=== PATIENT | male | born 1960 | race Caucasian/White ===

== ENCOUNTER 2020-08-21 10:53 | Observation (INO) | payer MEDICARE ==
--- NOTE | 2020-08-21 11:00 | ERPHSYRPT ---
- History of Present Illness Time Seen by Provider: 08/21/20 11:00 Historian: patient Exam Limitations: no limitations Physician History: This is a 59-year-old white male who presents with central mid chest pressure without radiation that has been present pretty much daily for several weeks. Patient finally told his spouse of these chest pains and therefore patient re cently was seen by Dr. Wright a rotary pump operator. Patient was found to have significant hypertension and was placed on Coreg and lisinopril. Patient also underwent a nuclear medicine cardiac stress test. That test result was done on 08/17/2020 and shows a normal cardiac ejection fraction of 61% and no scintigraphic evidence of any pharmacologic induced reversible ischemia. Patient has an appointment on 08/26/2020 for a cardiac echocardiogram on 08/26/2020 followed by another appointment with his rotary pump operator the week after for further evaluation and management. The patient's chest pain is persisting. It is not changing but is persistent as described above. Patient also is having increasing shortness of breath and his shortness of breath is worsening during shorter walks. Timing/Duration: other (Chronic for several weeks) Activities at Onset: activity (Worsens), rest (Persists) Quality: pressure Location: substernal, central Chest Pain Radiation: no radiation Severity of Pain-Max: moderate Severity of Pain-Current: moderate Associated Symptoms: shortness of breath, No cough, No fever Prior Chest Pain/Cardiac Workup: recently seen/treated Nitro Today/Relief: no nitro taken today Aspirin Treatment Today: 81 mg x 1, provided at home Allergies/Adverse Reactions: No Known Drug Allergies Allergy (Unverified 08/21/20 11:05) Home Medications: Aspirin 81 gm Chew [Baby Aspirin 81 mg Chew] 81 mg PO DAILY 08/21/20 [History] Carvedilol 6.25 mg [Coreg 6.25 MG] 6.25 mg PO BID 08/21/20 [History] Lisinopril 20 mg [Zestril 20 MG] 20 mg PO DAILY 08/21/20 [History] Tamsulosin HCl 0.4 mg PO DAILY 08/21/20 [History] Travel Risk - International Travel Have you traveled outside of the country in past 3 weeks: No - Coronavirus Screening Are you exhibiting any of the following symptoms?: No Close contact with a COVID-19 positive Pt in past 14-21 Days: No - Review of Systems Constitutional: No Symptoms Eyes: No Symptoms Ears, Nose, & Throat: No Symptoms Respiratory: Dyspnea Cardiac: Chest Pain (Described as pressure) Abdominal/Gastrointestinal: No Symptoms Genitourinary Symptoms: No Symptoms Musculoskeletal: No Symptoms Skin: No Symptoms Neurological: No Symptoms Psychological: No Symptoms Endocrine: No Symptoms Hematologic/Lymphatic: No Symptoms Immunological/Allergic: No Symptoms All Other Systems: Reviewed and Negative - Past Medical History Pertinent Past Medical History: Yes - Past Surgical History Past Surgical History: Yes - Nursing Vital Signs Nursing Vital Signs: Initial Vital Signs Temperature 98.5 F 08/21/20 10:54 Pulse Rate 75 08/21/20 10:54 Respiratory Rate 20 08/21/20 10:54 Blood Pressure 185/103 08/21/20 10:54 O2 Sat by Pulse Oximetry 100 08/21/20 10:54 Pain Scale Pain Intensity 2 - Physical Exam General Appearance: no apparent distress Eye Exam: PERRL/EOMI Ears, Nose, Throat Exam: normal ENT inspection, moist mucous membranes Neck Exam: normal inspection, non-tender, supple, full range of motion Respiratory Exam: normal breath sounds, lungs clear, airway intact, No chest tenderness, No respiratory distress Cardiovascular Exam: regular rate/rhythm, normal heart sounds, normal peripheral pulses Gastrointestinal/Abdomen Exam: soft, normal bowel sounds, No tenderness Rectal Exam: not done Back Exam: normal inspection, normal range of motion, No CVA tenderness, No vertebral tenderness Extremity Exam: normal inspection, normal range of motion, pelvis stable Neurologic Exam: alert, oriented x 3, cooperative, wet machine cutter II-XII nml as tested, normal mood/affect, nml cerebellar function, nml station & gait, sensation nml Skin Exam: normal color, warm, dry Lymphatic Exam: No adenopathy SpO2 Interpretation: normal O2 Delivery: Room Air - Course Nursing assessment & vital signs reviewed: Yes EKG Interpreted by Me: RATE (76), Sinus Rhythm, NORMAL AXIS, NORMAL INTERVALS, NORMAL QRS, NORMAL ST-T, Other (No acute ischemic changes. No comparison EKG) Ordered Tests: Active Orders 24 hr Category Date Time Status EKG-ER Only STAT Care 08/21/20 11:02 Active IV Insertion STAT Care 08/21/20 11:02 Active Oxygen-ED Only Nasal Cannula 2 lpm Care 08/21/20 11:41 Active CHEST 1 VIEW (PORTABLE) Stat Exams 08/21/20 11:14 Completed CBC W DIFF Stat Lab 08/21/20 11:00 Completed CMP Stat Lab 08/21/20 11:00 Completed D-DIMER QUANTITATIVE Stat Lab 08/21/20 11:20 Completed NT PRO BNP Stat Lab 08/21/20 11:00 Completed TROPONIN Q3H Lab 08/21/20 11:00 Completed TROPONIN Q3H Lab 08/21/20 14:15 Ordered TROPONIN Q3H Lab 08/21/20 17:15 Ordered TROPONIN Q3H Lab 08/21/20 20:15 Ordered TROPONIN Q3H Lab 08/21/20 23:15 Ordered Transfer Order Routine Transfer 08/21/20 Ordered Medication Summary Discontinued Medications Generic Name Dose Route Start Last Admin Trade Name Freq PRN Reason Stop Dose Admin Aspirin 324 mg 08/21/20 11:02 08/21/20 11:11 Baby Aspirin 81 Mg Chew PO 08/21/20 11:03 324 mg STAT ONE Administration Morphine Sulfate 4 mg 08/21/20 11:20 08/21/20 11:33 Morphine Sulfate 4 Mg Inj IV 08/21/20 11:21 4 mg STAT ONE Administration Morphine Sulfate Confirm 08/21/20 11:29 Morphine Sulfate 4 Mg Inj Administered 08/21/20 11:30 Dose 4 mg .ROUTE .STK-MED ONE Morphine Sulfate 2 mg 08/21/20 12:21 08/21/20 12:22 Morphine Sulfate 2 Mg Inj IV 08/21/20 12:22 2 mg STAT ONE Administration Morphine Sulfate Confirm 08/21/20 12:21 Morphine Sulfate 2 Mg Inj Administered 08/21/20 12:22 Dose 2 mg .ROUTE .STK-MED ONE Nitroglycerin 0.4 mg 08/21/20 11:20 08/21/20 11:32 Nitrostat 0.4 Mg (Ed) SL 08/21/20 11:21 0.4 mg STAT ONE Administration Nitroglycerin Confirm 08/21/20 11:29 Nitrostat 0.4 Mg (Ed) Administered 08/21/20 11:30 Dose 0.4 mg SL .STK-MED ONE Ondansetron HCl 4 mg 08/21/20 11:20 08/21/20 11:32 Zofran 4 Mg/2 Ml Vial IV 08/21/20 11:21 4 mg STAT ONE Administration Ondansetron HCl Confirm 08/21/20 11:27 Zofran 4 Mg/2 Ml Vial Administered 08/21/20 11:28 Dose 4 mg .ROUTE .STK-MED ONE Lab/Rad Data: Laboratory Result Diagrams 08/21/20 11:00 08/21/20 11:00 Laboratory Results 08/21/20 08/21/20 08/21/20 Range/Units 11:20 11:00 11:00 WBC (4.0-10.5) K/mm3 RBC (4.1-5.6) M/mm3 Hgb (12.5-18.0) gm/dl Hct (42-50) % MCV (78-100) fl MCH (26-32) pg MCHC (32-36) g/dl RDW (11.5-14.0) % Plt Count (150-450) K/mm3 MPV (7.5-11.0) fl Gran % (36.0-66.0) % Eos # (Auto) (0-0.5) Absolute Lymphs (auto) (1.0-4.6) Absolute Monos (auto) (0.0-1.3) Lymphocytes % (24.0-44.0) % Monocytes % (0.0-12.0) % Eosinophils % (0.00-5.0) % Basophils % (0.0-0.4) % Absolute Granulocytes (1.4-6.9) Basophils # (0-0.4) D-Dimer 373 (215-500) ng/mL Sodium 139 (137-145) mmol/L Potassium 4.0 (3.5-5.1) mmol/L Chloride 103 (98-107) mmol/L Carbon Dioxide 25 (22-30) mmol/L Anion Gap 14.2 (5-15) MEQ/L BUN 11 (9-20) mg/dL Creatinine 1.05 (0.66-1.25) mg/dL Estimated GFR > 60.0 ML/MIN Glucose 110 H (74-106) mg/dL Calcium 9.6 (8.4-10.2) mg/dL Total Bilirubin 0.60 (0.2-1.3) mg/dL AST 37 (17-59) U/L ALT 29 (0-50) U/L Alkaline Phosphatase 55 (38-126) U/L Troponin I < 0.012 (0.000-0.034) ng/mL NT-Pro-B Natriuret Pep 42.0 (0-900) pg/mL Serum Total Protein 7.5 (6.3-8.2) g/dL Albumin 4.5 (3.5-5.0) g/dL 08/21/20 Range/Units 11:00 WBC 7.3 (4.0-10.5) K/mm3 RBC 5.59 (4.1-5.6) M/mm3 Hgb 15.9 (12.5-18.0) gm/dl Hct 47.5 (42-50) % MCV 85.0 (78-100) fl MCH 28.4 (26-32) pg MCHC 33.5 (32-36) g/dl RDW 13.7 (11.5-14.0) % Plt Count 207 (150-450) K/mm3 MPV 11.3 H (7.5-11.0) fl Gran % 51.5 (36.0-66.0) % Eos # (Auto) 0.16 (0-0.5) Absolute Lymphs (auto) 2.66 (1.0-4.6) Absolute Monos (auto) 0.66 (0.0-1.3) Lymphocytes % 36.6 (24.0-44.0) % Monocytes % 9.1 (0.0-12.0) % Eosinophils % 2.2 (0.00-5.0) % Basophils % 0.6 (0.0-0.4) % Absolute Granulocytes 3.74 (1.4-6.9) Basophils # 0.04 (0-0.4) D-Dimer (215-500) ng/mL Sodium (137-145) mmol/L Potassium (3.5-5.1) mmol/L Chloride (98-107) mmol/L Carbon Dioxide (22-30) mmol/L Anion Gap (5-15) MEQ/L BUN (9-20) mg/dL Creatinine (0.66-1.25) mg/dL Estimated GFR ML/MIN Glucose (74-106) mg/dL Calcium (8.4-10.2) mg/dL Total Bilirubin (0.2-1.3) mg/dL AST (17-59) U/L ALT (0-50) U/L Alkaline Phosphatase (38-126) U/L Troponin I (0.000-0.034) ng/mL NT-Pro-B Natriuret Pep (0-900) pg/mL Serum Total Protein (6.3-8.2) g/dL Albumin (3.5-5.0) g/dL - Progress Progress: improved, re-examined Air Movement: good Progress Note: 08/21/20 11:32 Chest x-ray shows no acute cardiopulmonary process. 08/21/20 13:46 Medical decision making: This patient has continued chest pain despite normal D- dimer, chest x-ray and normal troponin. His electrolytes are also within normal limits. I spoke with the patient's rotary pump operator. He felt the patient would be best served by placing the patient into observation and rule him out from the cardiac standpoint. Patient then can be discharged to home and will be instructed to contact his rotary pump operator office on 08/24/2020. I then spoke with Dr. Good and he agrees to place the patient observation. Blood Culture(s) Obtained: No Antibiotics given: No Counseled pt/family regarding: lab results, diagnosis, need for follow-up, rad results - Departure Departure Disposition: Observation Clinical Impression: Chest pain, Hypertension Condition: Stable Critical Care Time: No Referrals: ASHLEY RANKIN NP [Primary Care Provider] -
[2020-08-21] MEDS ORDERED: BABY ASPIRIN 81 MG CHEW PO ONE (11:02)
[2020-08-21] MEDS ORDERED: Nitrostat 0.4 MG (ED) SL ONE ×2 (11:20→11:29)
[2020-08-21] MEDS ORDERED: MORPHINE SULFATE 4 MG INJ IV ONE ×2 (11:20→14:58)
[2020-08-21] MEDS ORDERED: Zofran 4 MG/2 ML VIAL IV ONE (11:20)
[2020-08-21] MEDS ORDERED: Zofran 4 MG/2 ML VIAL ONE (11:27)
[2020-08-21] MEDS ORDERED: MORPHINE SULFATE 4 MG INJ ONE ×2 (11:29→14:59)
--- NOTE | 2020-08-21 11:29 | XRAY ---
Indication: Chest pain. Comparison: None Portable apical lordotic chest demonstrates mild lingula subsegmental atelectasis/scarring. Remaining heart and right lung normal. Bony thorax intact with mild degenerative changes and scoliosis. Impression: Nonacute chest with chronic features.
[2020-08-21 11:31] LABS: Absolute Neutrophil Ct (ANC) 3.74 (1.4-6.9); BASOPHIL % 0.6 % (0.0-0.4); Basophil (Absolute #) 0.04 (0-0.4); Eosinophil % 2.2 % (0.00-5.0); Eosinophil (Absolute #) 0.16 (0-0.5); Hematocrit 47.5 % (42-50); Hemoglobin 15.9 gm/dl (12.5-18.0); Lymphocyte (Absolute #) 2.66 (1.0-4.6); Lymphocytes % 36.6 % (24.0-44.0); Mean Corpuscular Hemoglobin 28.4 pg (26-32); Mean Corpuscular Hgb Concent. 33.5 g/dl (32-36); Mean Platelet Volume 11.3 fl (7.5-11.0); Monocyte (Absolute #) 0.66 (0.0-1.3); Monocytes % 9.1 % (0.0-12.0); Neutrophil % 51.5 % (36.0-66.0); Platelet Count 207 K/mm3 (150-450); Red Blood Count 5.59 M/mm3 (4.1-5.6); Red Cell Distribution Width 13.7 % (11.5-14.0); White Blood Count 7.3 K/mm3 (4.0-10.5)
[2020-08-21 12:05] LABS: ALBUMIN 4.5 g/dL (3.5-5.0); ALKALINE PHOSPHATASE 55 U/L (38-126); ANION GAP 14.2 MEQ/L (5-15); BLOOD UREA NITROGEN 11 mg/dL (9-20); CHLORIDE 103 mmol/L (98-107); Calcium 9.6 mg/dL (8.4-10.2); Carbon Dioxide 25 mmol/L (22-30); Creatinine 1 1.05 mg/dL (0.66-1.25); EST GLOMERULAR FILTRATION RATE > 60.0 ML/MIN; Glucose 110 mg/dL (74-106); SGOT/AST 37 U/L (17-59); SGPT/ALT 29 U/L (0-50); SODIUM 139 mmol/L (137-145); Total Protein 7.5 g/dL (6.3-8.2)
[2020-08-21] MEDS ORDERED: MORPHINE SULFATE 2 MG INJ IV ONE (12:21)
[2020-08-21] MEDS ORDERED: MORPHINE SULFATE 2 MG INJ ONE (12:21)
[2020-08-21] MEDS ORDERED: Zofran 4 MG/2 ML VIAL IV PRN (16:43)
[2020-08-21] MEDS ORDERED: TYLENOL 325 MG PO PRN (16:43)
[2020-08-21] MEDS ORDERED: VASOTEC I.V. 2.5 MG IV SCH (16:43)
[2020-08-21] MEDS ORDERED: VASOTEC I.V. 2.5 MG IV PRN (20:17)
[2020-08-21] MEDS: MORPHINE SULFATE 4 MG INJ IV PRN (20:58)
[2020-08-21] MEDS: Coreg 6.25 MG PO SCH (20:58)
[2020-08-22 07:06] LABS: Absolute Neutrophil Ct (ANC) 4.13 (1.4-6.9); BASOPHIL % 0.3 % (0.0-0.4); Basophil (Absolute #) 0.02 (0-0.4); Eosinophil % 2.2 % (0.00-5.0); Eosinophil (Absolute #) 0.16 (0-0.5); Hematocrit 46.1 % (42-50); Hemoglobin 14.9 gm/dl (12.5-18.0); Lymphocyte (Absolute #) 2.36 (1.0-4.6); Lymphocytes % 31.9 % (24.0-44.0); Mean Cell Volume 87.8 fl (78-100); Mean Corpuscular Hemoglobin 28.4 pg (26-32); Mean Corpuscular Hgb Concent. 32.3 g/dl (32-36); Monocyte (Absolute #) 0.72 (0.0-1.3); Monocytes % 9.7 % (0.0-12.0); Neutrophil % 55.9 % (36.0-66.0); Platelet Count 194 K/mm3 (150-450); Red Blood Count 5.25 M/mm3 (4.1-5.6); White Blood Count 7.4 K/mm3 (4.0-10.5)
[2020-08-22 07:11] LABS: ALBUMIN 3.9 g/dL (3.5-5.0); ALKALINE PHOSPHATASE 51 U/L (38-126); ANION GAP 11.6 MEQ/L (5-15); BLOOD UREA NITROGEN 14 mg/dL (9-20); CHLORIDE 105 mmol/L (98-107); Calcium 9.1 mg/dL (8.4-10.2); Carbon Dioxide 27 mmol/L (22-30); Creatinine 1 1.22 mg/dL (0.66-1.25); EST GLOMERULAR FILTRATION RATE > 60.0 ML/MIN; Glucose 108 mg/dL (74-106); Potassium 4.1 mmol/L (3.5-5.1); SGOT/AST 29 U/L (17-59); SGPT/ALT 27 U/L (0-50); SODIUM 139 mmol/L (137-145); Total Protein 6.7 g/dL (6.3-8.2)
[2020-08-22] MEDS ORDERED: Nitrostat 0.4 MG Tablet SL ONE (07:18)
[2020-08-22] MEDS ORDERED: Nitrostat 0.4 MG Tablet SL PRN (07:37)
[2020-08-22] MEDS: Coreg 6.25 MG PO SCH (09:59)
[2020-08-22] MEDS: MORPHINE SULFATE 4 MG INJ IV PRN (10:36)
[2020-08-22 12:12] VITALS: BP 133/75; PULSE 69; O2SAT 93
--- NOTE | 2020-08-22 12:58 | PCM.SSS ---
History of Present Illness - Chief Complaint Chief Complaint: Chest pain History of Present Illness: Mr.DUNNING GARCIA is a 59 year old male pt of Chele Rankin with COPD, HTN, scoliosis, and BPH who was admitted through ER for CP r/o VT. He has been having chest pressure x 3 weeks; substernal, nonradiating, 4-5 to 7-8/10, worse with activity and better with rest. Does c/o diaphoresis and sob wtih it. Has had palpitations 2-3 x/wk for epast few weeks; no nausea. He went to Dr. Wright recently and was found to have very elevated BP and was started on coreg and lisinopril. Had nucelar stress test 08/17/20 with nl EF 61% and no ischemia (per ER note). Is scheduled for echo on 08/26/20. In ER, Dr. Wright was contacted and he said to admit the pt to rule out VT, then discharge him to home and he can f/u on Monday08/24/20. This morning pt had some radiation of the chest pain to the left chest. He was in bed talking to the nurse; pain was 8/10. Better with nitro and morphine. Pt's M had VT and his F had HTN and VT. Pt is a former 2 PPD smoker x 23 years. Pt tested + for COVID but only has periodic cough. He had COVID in Feb 2020. - Review of Systems Respiratory: Cough (periodically), Short Of Breath Cardiac: Chest Pain Neurological: Dizziness (lost his balance 2d ago while feeding the dog; no syncope) All Other Systems: Reviewed and Negative Medications & Allergies Home Medications: Home Medication List Aspirin 81 gm Chew [Baby Aspirin 81 mg Chew] 81 mg PO DAILY 08/21/20 [History Confirmed 08/21/20] Carvedilol 6.25 mg [Coreg 6.25 MG] 6.25 mg PO BID 08/21/20 [History Confirmed 08/21/20] Lisinopril 20 mg [Zestril 20 MG] 20 mg PO DAILY 08/21/20 [History Confirmed 08/21/20] Tamsulosin HCl 0.4 mg PO DAILY 08/21/20 [History Confirmed 08/21/20] Nitroglycerin 0.4 mg Tablet [Nitrostat 0.4 MG Tablet] 0.4 mg SL Q5MIN PRN MR X 3 PRN #1 bottle 08/22/20 [Rx] Allergies/Adverse Reactions: Allergies Allergy/AdvReac Type Severity Reaction Status Date / Time No Known Drug Allergies Allergy Unverified 08/21/20 11:05 - Past Medical History Past Medical History: Yes Neurological History: No Pertinent History ENT History: No Pertinent History Cardiac History: High Cholesterol, Hypertension Respiratory History: COPD Endocrine Medical History: No Pertinent History Musculoskelatal History: Arthritis GI Medical History: No Pertinent History History: No Pertinent History Pyscho-Social History: Depression Male Reproductive Disorders: Other Comment: enlarged prostate - Past Surgical History Past Surgical History: Yes Neuro Surgical History: No Pertinent History Cardiac History: No Pertinent History Respiratory Surgery: No Pertinent History GI Surgical History: No Pertinent History Genitourinary Surgical Hx: No Pertinent History Musculskeletal Surgical Hx: Orthopedic Surgery Male Surgical History: No Pertinent History Other Surgical History: R knee, R foot, L ankle - screws in place - Social History Smoking Status: Former smoker Exposure to second hand smoke: No Alcohol: None Drug Use: none - Physical Exam Vital Signs: Vital Signs - 24 hr Temp Pulse Resp BP BP Pulse Ox 08/22/20 12:00 98.5 F 69 18 133/75 93 L 08/22/20 10:46 98.3 F 85 18 151/81 94 L 08/22/20 10:00 99.0 F 75 16 138/65 95 08/22/20 07:55 18 08/22/20 07:51 97.8 F 75 18 132/89 94 L 08/22/20 07:43 94 L 08/22/20 07:20 75 132/89 08/22/20 05:56 60 18 119/70 95 08/22/20 03:47 62 18 92 L 08/22/20 01:59 74 16 124/73 92 L 08/21/20 23:35 68 18 120/70 93 L 08/21/20 21:40 98.5 F 71 18 133/86 93 L 08/21/20 19:34 98.7 F 77 20 144/80 92 L 08/21/20 17:57 98.5 F 84 20 136/68 92 L 08/21/20 17:28 98.5 F 64 18 160/90 94 L 08/21/20 17:21 94 L 08/21/20 15:01 63 18 146/82 97 08/21/20 14:58 61 18 125/77 98 08/21/20 13:04 60 16 121/66 97 General Appearance: no apparent distress, obese Neurologic Exam: alert, oriented x 3, cooperative, normal mood/affect Eye Exam: eyes nml inspection Ears, Nose, Throat Exam: moist mucous membranes Neck Exam: normal inspection Respiratory Exam: normal breath sounds, lungs clear, other (chest nttp throughout), No crackles/rales, No rhonchi, No wheezing Cardiovascular Exam: regular rate/rhythm, normal heart sounds, No murmur Gastrointestinal/Abdomen Exam: soft, normal bowel sounds, No tenderness, No distention, No mass, No guarding, No rebound Back Exam: normal inspection, No rash Extremity Exam: normal inspection, No pedal edema, No swelling Skin Exam: normal color, warm, dry, No rash Results - Labs Lab/Micro Results: Lab Results-Last 24 Hours 08/21/20 08/21/20 08/21/20 Range/Units 14:05 14:22 17:23 WBC (4.0-10.5) K/mm3 RBC (4.1-5.6) M/mm3 Hgb (12.5-18.0) gm/dl Hct (42-50) % MCV (78-100) fl MCH (26-32) pg MCHC (32-36) g/dl RDW (11.5-14.0) % Plt Count (150-450) K/mm3 MPV (7.5-11.0) fl Gran % (36.0-66.0) % Eos # (Auto) (0-0.5) Absolute Lymphs (auto) (1.0-4.6) Absolute Monos (auto) (0.0-1.3) Lymphocytes % (24.0-44.0) % Monocytes % (0.0-12.0) % Eosinophils % (0.00-5.0) % Basophils % (0.0-0.4) % Absolute Granulocytes (1.4-6.9) Basophils # (0-0.4) Sodium (137-145) mmol/L Potassium (3.5-5.1) mmol/L Chloride (98-107) mmol/L Carbon Dioxide (22-30) mmol/L Anion Gap (5-15) MEQ/L BUN (9-20) mg/dL Creatinine (0.66-1.25) mg/dL Estimated GFR ML/MIN Glucose (74-106) mg/dL Calcium (8.4-10.2) mg/dL Total Bilirubin (0.2-1.3) mg/dL AST (17-59) U/L ALT (0-50) U/L Alkaline Phosphatase (38-126) U/L Troponin I < 0.012 < 0.012 (0.000-0.034) ng/mL Serum Total Protein (6.3-8.2) g/dL Albumin (3.5-5.0) g/dL SARS-CoV-2 (PCR) POSITIVE A (NEGATIVE) 08/21/20 08/21/20 08/22/20 Range/Units 19:59 23:35 06:15 WBC 7.4 (4.0-10.5) K/mm3 RBC 5.25 (4.1-5.6) M/mm3 Hgb 14.9 (12.5-18.0) gm/dl Hct 46.1 (42-50) % MCV 87.8 (78-100) fl MCH 28.4 (26-32) pg MCHC 32.3 (32-36) g/dl RDW 14.0 (11.5-14.0) % Plt Count 194 (150-450) K/mm3 MPV 11.0 (7.5-11.0) fl Gran % 55.9 (36.0-66.0) % Eos # (Auto) 0.16 (0-0.5) Absolute Lymphs (auto) 2.36 (1.0-4.6) Absolute Monos (auto) 0.72 (0.0-1.3) Lymphocytes % 31.9 (24.0-44.0) % Monocytes % 9.7 (0.0-12.0) % Eosinophils % 2.2 (0.00-5.0) % Basophils % 0.3 (0.0-0.4) % Absolute Granulocytes 4.13 (1.4-6.9) Basophils # 0.02 (0-0.4) Sodium (137-145) mmol/L Potassium (3.5-5.1) mmol/L Chloride (98-107) mmol/L Carbon Dioxide (22-30) mmol/L Anion Gap (5-15) MEQ/L BUN (9-20) mg/dL Creatinine (0.66-1.25) mg/dL Estimated GFR ML/MIN Glucose (74-106) mg/dL Calcium (8.4-10.2) mg/dL Total Bilirubin (0.2-1.3) mg/dL AST (17-59) U/L ALT (0-50) U/L Alkaline Phosphatase (38-126) U/L Troponin I < 0.012 < 0.012 (0.000-0.034) ng/mL Serum Total Protein (6.3-8.2) g/dL Albumin (3.5-5.0) g/dL SARS-CoV-2 (PCR) (NEGATIVE) 08/22/20 Range/Units 06:15 WBC (4.0-10.5) K/mm3 RBC (4.1-5.6) M/mm3 Hgb (12.5-18.0) gm/dl Hct (42-50) % MCV (78-100) fl MCH (26-32) pg MCHC (32-36) g/dl RDW (11.5-14.0) % Plt Count (150-450) K/mm3 MPV (7.5-11.0) fl Gran % (36.0-66.0) % Eos # (Auto) (0-0.5) Absolute Lymphs (auto) (1.0-4.6) Absolute Monos (auto) (0.0-1.3) Lymphocytes % (24.0-44.0) % Monocytes % (0.0-12.0) % Eosinophils % (0.00-5.0) % Basophils % (0.0-0.4) % Absolute Granulocytes (1.4-6.9) Basophils # (0-0.4) Sodium 139 (137-145) mmol/L Potassium 4.1 (3.5-5.1) mmol/L Chloride 105 (98-107) mmol/L Carbon Dioxide 27 (22-30) mmol/L Anion Gap 11.6 (5-15) MEQ/L BUN 14 (9-20) mg/dL Creatinine 1.22 (0.66-1.25) mg/dL Estimated GFR > 60.0 ML/MIN Glucose 108 H (74-106) mg/dL Calcium 9.1 (8.4-10.2) mg/dL Total Bilirubin 0.40 (0.2-1.3) mg/dL AST 29 (17-59) U/L ALT 27 (0-50) U/L Alkaline Phosphatase 51 (38-126) U/L Troponin I (0.000-0.034) ng/mL Serum Total Protein 6.7 (6.3-8.2) g/dL Albumin 3.9 (3.5-5.0) g/dL SARS-CoV-2 (PCR) (NEGATIVE) - Radiology Impressions Radiology Exams & Impressions: Radiology Procedures Category Date Time Status CHEST 1 VIEW (PORTABLE) Stat Exams 08/21/20 11:14 Completed - Other Procedures and Tests Respiratory Therapy 08/21/20 21:00 BiPap/CPAP ROUTINE Assessment/Plan (1) Chest pain Current Visit: Yes Status: Acute Qualifiers: Chest pain type: chest pain due to myocardial ischemia Ischemic chest pain type: stable angina pectoris Qualified Code(s): I20.8 - Other forms of angina pectoris Assessment & Plan: VT ruled out. Pt to f/u with Dr. Wright on Monday08/24/20. Pt in the midst of cardiac workup. Code(s): R07.9 - CHEST PAIN, UNSPECIFIED (2) Hypertension Current Visit: Yes Status: Chronic Qualifiers: Hypertension type: essential hypertension Qualified Code(s): I10 - Essential (primary) hypertension Code(s): I10 - ESSENTIAL (PRIMARY) HYPERTENSION Hospital Summary - Hospital Course Hospital Course: Pt admitted for CP/R/o VT - troponins are neg x 5. EKG nonacute. Will send pt home with nitro prn; discussed when to come to ER. He is to f/u with Dr. Wright on Monday08/24/[address] Wright. - Vitals & Intake/Output Vital Signs: Vital Signs Temperature 98.5 F 08/22/20 12:00 Pulse Rate 69 08/22/20 12:00 Respiratory Rate 18 08/22/20 12:00 Blood Pressure 133/75 08/22/20 12:00 O2 Sat by Pulse Oximetry 93 L 08/22/20 12:00 Intake & Output: Intake & Output 08/20/20 08/21/20 08/22/20 08/23/20 11:59 11:59 11:59 11:59 Intake Total 1040 Output Total 350 Balance 690 Weight 100.8 kg 107.5 kg - Lab Result Diagrams: 08/22/20 06:15 08/22/20 06:15 Lab Results-Last 24 Hrs: Lab Results-Last 24 Hours 08/21/20 08/21/20 08/21/20 Range/Units 14:05 14:22 17:23 WBC (4.0-10.5) K/mm3 RBC (4.1-5.6) M/mm3 Hgb (12.5-18.0) gm/dl Hct (42-50) % MCV (78-100) fl MCH (26-32) pg MCHC (32-36) g/dl RDW (11.5-14.0) % Plt Count (150-450) K/mm3 MPV (7.5-11.0) fl Gran % (36.0-66.0) % Eos # (Auto) (0-0.5) Absolute Lymphs (auto) (1.0-4.6) Absolute Monos (auto) (0.0-1.3) Lymphocytes % (24.0-44.0) % Monocytes % (0.0-12.0) % Eosinophils % (0.00-5.0) % Basophils % (0.0-0.4) % Absolute Granulocytes (1.4-6.9) Basophils # (0-0.4) Sodium (137-145) mmol/L Potassium (3.5-5.1) mmol/L Chloride (98-107) mmol/L Carbon Dioxide (22-30) mmol/L Anion Gap (5-15) MEQ/L BUN (9-20) mg/dL Creatinine (0.66-1.25) mg/dL Estimated GFR ML/MIN Glucose (74-106) mg/dL Calcium (8.4-10.2) mg/dL Total Bilirubin (0.2-1.3) mg/dL AST (17-59) U/L ALT (0-50) U/L Alkaline Phosphatase (38-126) U/L Troponin I < 0.012 < 0.012 (0.000-0.034) ng/mL Serum Total Protein (6.3-8.2) g/dL Albumin (3.5-5.0) g/dL SARS-CoV-2 (PCR) POSITIVE A (NEGATIVE) 08/21/20 08/21/20 08/22/20 Range/Units 19:59 23:35 06:15 WBC 7.4 (4.0-10.5) K/mm3 RBC 5.25 (4.1-5.6) M/mm3 Hgb 14.9 (12.5-18.0) gm/dl Hct 46.1 (42-50) % MCV 87.8 (78-100) fl MCH 28.4 (26-32) pg MCHC 32.3 (32-36) g/dl RDW 14.0 (11.5-14.0) % Plt Count 194 (150-450) K/mm3 MPV 11.0 (7.5-11.0) fl Gran % 55.9 (36.0-66.0) % Eos # (Auto) 0.16 (0-0.5) Absolute Lymphs (auto) 2.36 (1.0-4.6) Absolute Monos (auto) 0.72 (0.0-1.3) Lymphocytes % 31.9 (24.0-44.0) % Monocytes % 9.7 (0.0-12.0) % Eosinophils % 2.2 (0.00-5.0) % Basophils % 0.3 (0.0-0.4) % Absolute Granulocytes 4.13 (1.4-6.9) Basophils # 0.02 (0-0.4) Sodium (137-145) mmol/L Potassium (3.5-5.1) mmol/L Chloride (98-107) mmol/L Carbon Dioxide (22-30) mmol/L Anion Gap (5-15) MEQ/L BUN (9-20) mg/dL Creatinine (0.66-1.25) mg/dL Estimated GFR ML/MIN Glucose (74-106) mg/dL Calcium (8.4-10.2) mg/dL Total Bilirubin (0.2-1.3) mg/dL AST (17-59) U/L ALT (0-50) U/L Alkaline Phosphatase (38-126) U/L Troponin I < 0.012 < 0.012 (0.000-0.034) ng/mL Serum Total Protein (6.3-8.2) g/dL Albumin (3.5-5.0) g/dL SARS-CoV-2 (PCR) (NEGATIVE) 08/22/20 Range/Units 06:15 WBC (4.0-10.5) K/mm3 RBC (4.1-5.6) M/mm3 Hgb (12.5-18.0) gm/dl Hct (42-50) % MCV (78-100) fl MCH (26-32) pg MCHC (32-36) g/dl RDW (11.5-14.0) % Plt Count (150-450) K/mm3 MPV (7.5-11.0) fl Gran % (36.0-66.0) % Eos # (Auto) (0-0.5) Absolute Lymphs (auto) (1.0-4.6) Absolute Monos (auto) (0.0-1.3) Lymphocytes % (24.0-44.0) % Monocytes % (0.0-12.0) % Eosinophils % (0.00-5.0) % Basophils % (0.0-0.4) % Absolute Granulocytes (1.4-6.9) Basophils # (0-0.4) Sodium 139 (137-145) mmol/L Potassium 4.1 (3.5-5.1) mmol/L Chloride 105 (98-107) mmol/L Carbon Dioxide 27 (22-30) mmol/L Anion Gap 11.6 (5-15) MEQ/L BUN 14 (9-20) mg/dL Creatinine 1.22 (0.66-1.25) mg/dL Estimated GFR > 60.0 ML/MIN Glucose 108 H (74-106) mg/dL Calcium 9.1 (8.4-10.2) mg/dL Total Bilirubin 0.40 (0.2-1.3) mg/dL AST 29 (17-59) U/L ALT 27 (0-50) U/L Alkaline Phosphatase 51 (38-126) U/L Troponin I (0.000-0.034) ng/mL Serum Total Protein 6.7 (6.3-8.2) g/dL Albumin 3.9 (3.5-5.0) g/dL SARS-CoV-2 (PCR) (NEGATIVE) - Radiology Exams Ordered Rad Exams-Entire Visit: Radiology Procedures Category Date Time Status CHEST 1 VIEW (PORTABLE) Stat Exams 08/21/20 11:14 Completed - Procedures and Test Procedures and Tests throughout Hospitalization: Therapy Orders & Screens 08/21/20 16:43 EKG REPEAT IN AM Comment: 08/21/20 21:00 BiPap/CPAP ROUTINE Comment: PER HOME SETTINGS Diagnosis: Chest pain - Discharge Disposition: Home, Self-Care Condition: Stable Prescriptions: New Nitroglycerin 0.4 mg Tablet [Nitrostat 0.4 MG Tablet] 0.4 mg SL Q5MIN PRN MR X 3 PRN #1 bottle PRN Reason: Chest Pain Continue Carvedilol 6.25 mg [Coreg 6.25 MG] 6.25 mg PO BID Aspirin 81 gm Chew [Baby Aspirin 81 mg Chew] 81 mg PO DAILY Lisinopril 20 mg [Zestril 20 MG] 20 mg PO DAILY Tamsulosin HCl 0.4 mg PO DAILY Instructions: High Blood Pressure (DC), Chest Pain (DC), Coronavirus Disease 2019 (COVID-19) (DC) Follow up with: ASHLEY RANKIN NP [Primary Care Provider] - Forms: Discharge Instructions
== END 2020-08-22 14:21 | disposition home or self-care (01) ==
LOC: ED 10:53 → MED SURG 16:30
PROVIDERS: ADMIT Family Medicine; ATTEND Family Medicine
DX: R07.9 Chest pain, unspecified (principal); I10 Essential (primary) hypertension; Z79.899 Other long term (current) drug therapy; J44.9 Chronic obstructive pulmonary disease, unspecified; N40.0 Benign prostatic hyperplasia without lower urinary tract symptoms; R42 Dizziness and giddiness; E78.00 Pure hypercholesterolemia, unspecified; Z20.828 Contact with and (suspected) exposure to other viral communicable diseases
CPT/HCPCS: 36000; 36415; 71045; 80053; 83880; 84484; 85025; 85379; 93005; 93268; 94660; 94762; 96374; 96375; 96376; 99285; G0378; U0003; J2270; J2405; A9270-GY

== ENCOUNTER 2023-11-15 17:30 | Emergency (ER) | payer MEDICARE, OTHER ==
[2023-11-15 19:58] VITALS: TEMP 98.1
--- NOTE | 2023-11-15 20:22 | ERPHSYRPT ---
- History of Present Illness Time Seen by Provider: 11/15/23 20:15 Source: patient Exam Limitations: no limitations Patient Subjective Stated Complaint: fall, pt fell off a 3 step ladder and hit back on a window pain Triage Nursing Assessment: pt transferred from wheelchair to cot with stand by assist, spouse at bedside, pt presents with abrasions to bilateral elbows and L lower arm. abrasions noted to lower back and upper back, tenderness upon palpation to R flank. pt denies hitting head. pt on plavix Physician History: Patient is a 63-year-old male presents to emergency department for evaluation of low back pain. Patient states he was on a 3 rung ladder. Patient was at the top when he lost his balance and fell backwards. Patient's low back fell onto a concrete wall inlay. Injury occurred just prior to arrival. Patient complains of pain to the right flank and right low back. Patient has superficial abrasions to both elbows. However he states that these areas are not painful and declined x-rays of these areas. No BHT or LOC. No neck pain. Cervical spine cleared clinically. Patient otherwise feels well. at bedside. They voiced no other complaints or concerns at this time. Portions of this note were created with voice recognition technology. There may be grammatical, spelling, punctuation or sound alike errors Timing/Duration: today Severity: moderate Modifying Factors: Improves With: ibuprofen Associated Symptoms: denies symptoms Allergies/Adverse Reactions: No Known Drug Allergies Allergy (Verified 11/15/23 19:53) Home Medications: Carvedilol [Coreg ] 6.25 mg PO BID 08/21/20 [History] Lisinopril 20 mg [Zestril 20 MG] 20 mg PO DAILY 08/21/20 [History] Tamsulosin HCl 0.4 mg PO DAILY 08/21/20 [History] Albuterol Sulfate [Albuterol Sulfate Hfa] 2 puffs IH Q6H PRN PRN 11/15/23 [History] Amlodipine Besylate 5 mg [Norvasc 5 mg] 5 mg PO DAILY 11/15/23 [History] Clopidogrel Bisulfate [Plavix] 75 mg PO DAILY 11/15/23 [History] Ezetimibe [Zetia] 10 mg PO DAILY 11/15/23 [History] Hx Tetanus, Diphtheria Vaccination/Date Given: Yes Hx Influenza Vaccination/Date Given: No Hx Pneumococcal Vaccination/Date Given: No Travel Risk - International Travel Have you traveled outside of the country in past 3 weeks: No - Emerging Infectious Disease Are you exhibiting symptoms associated with any current EIDs: No - Review of Systems Constitutional: No Symptoms, No Fever, No Chills Eyes: No Symptoms Ears, Nose, & Throat: No Symptoms Respiratory: No Symptoms, No Cough, No Dyspnea Cardiac: No Symptoms, No Chest Pain, No Edema, No Syncope Abdominal/Gastrointestinal: No Symptoms, No Abdominal Pain, No Nausea, No Vomiting, No Diarrhea Genitourinary Symptoms: No Symptoms, No Dysuria Musculoskeletal: No Symptoms, No Back Pain, No Neck Pain Skin: No Symptoms, No Rash Neurological: No Symptoms, No Dizziness, No Focal Weakness, No Sensory Changes Psychological: No Symptoms Endocrine: No Symptoms Hematologic/Lymphatic: No Symptoms Immunological/Allergic: No Symptoms All Other Systems: Reviewed and Negative - Past Medical History Pertinent Past Medical History: Yes Neurological History: No Pertinent History ENT History: No Pertinent History Cardiac History: High Cholesterol, Hypertension Respiratory History: COPD Endocrine Medical History: No Pertinent History Musculoskeletal History: Arthritis GI Medical History: No Pertinent History History: No Pertinent History Psycho-Social History: Depression Male Reproductive Disorders: Other Other Medical History: enlarged prostate - Past Surgical History Past Surgical History: Yes Neuro Surgical History: No Pertinent History Cardiac: Cardiac Catheterization, Cardiac Stent Respiratory: No Pertinent History Gastrointestinal: No Pertinent History Genitourinary: No Pertinent History Musculoskeletal: Orthopedic Surgery Male Surgical History: No Pertinent History Other Surgical History: R knee, R foot, L ankle - screws in place - Social History Smoking Status: Former smoker Exposure to second hand smoke: No Drug Use: none Patient Lives Alone: No - Social Determinants of Health Will the patient participate in the screening: Declined to provide - Nursing Vital Signs Nursing Vital Signs: Initial Vital Signs Temperature 98.1 F 11/15/23 19:54 Pulse Rate 72 11/15/23 19:54 Respiratory Rate 18 11/15/23 19:54 Blood Pressure 157/67 11/15/23 19:54 O2 Sat by Pulse Oximetry 96 11/15/23 19:54 Pain Scale Pain Intensity 6 - Physical Exam General Appearance: no apparent distress, alert Eye Exam: PERRL/EOMI, eyes nml inspection Ears, Nose, Throat Exam: normal ENT inspection, moist mucous membranes Neck Exam: normal inspection, non-tender, supple, full range of motion Respiratory Exam: normal breath sounds, lungs clear, airway intact, No respiratory distress Cardiovascular Exam: regular rate/rhythm, normal heart sounds, normal peripheral pulses Gastrointestinal/Abdomen Exam: soft, normal bowel sounds, No tenderness, No mass Back Exam: normal inspection, normal range of motion, other (Tenderness to palpation lumbar spine. Overlying soft tissue intact. No open or draining lesions), No CVA tenderness, No vertebral tenderness Extremity Exam: normal inspection, normal range of motion, pelvis stable, other (Abrasions to both elbows. Bilateral upper extremities are neurovascular intact distally compartments are soft cap refill less than 2 seconds.) Neurologic Exam: alert, oriented x 3, cooperative, normal mood/affect, sensation nml, No motor deficits Skin Exam: normal color, warm, dry, No rash Lymphatic Exam: No adenopathy SpO2 Interpretation: normal SpO2: 96 O2 Delivery: Room Air - Course Nursing assessment & vital signs reviewed: Yes - Radiology Exams L-Spine X-ray Interpretation: Teleradiologist Report (No comps. Nondisplaced right L1- L3 transverse process acute fracture. Incidental scattered diverticulosis, mild lumbar dextroscoliosis and mild multilevel degenerative disc disease of the lumbar spine. Remaining abdomen pelvis negative) - CT Exams Abdomen/Pelvis CT Interpretation: Tele-radiologist Report (No comps nondisplaced right L1-L3 transverse process acute fractures. Incidental scattered diverticulosis with mild multilevel lumbar degenerative disc disease. Otherwise negative.) Chest CT Interpretation: Tele-radiologist Report (CT chest no comps. 1.2 cm x 1.3 cm right lower lobe noncalcified lung nodule. Scattered bilateral atelectasis scarring and mild levoscoliosis no acute findings or fractures) Ordered Tests: Active Orders 24 hr Category Date Time Status ABDOMEN AND PELVIS W/0 CONTRAS [CT] Stat Exams 11/15/23 20:23 Taken CHEST WITHOUT CONTRAST [CT] Stat Exams 11/15/23 20:39 Taken RECONSTRUCTION [CT] Stat Exams 11/15/23 20:23 Taken Medication Summary Discontinued Medications Generic Name Dose Route Start Last Admin Trade Name Freq PRN Reason Stop Dose Admin Dexamethasone Sodium Phosphate 8 mg 11/15/23 20:20 11/15/23 21:14 Dexamethasone Sod Phosphate 10 Mg/Ml IM 11/15/23 20:21 8 mg STAT ONE Administration Dexamethasone Sodium Phosphate Confirm 11/15/23 20:31 Dexamethasone Sod Phosphate 10 Mg/Ml Administered 11/15/23 20:32 Dose 10 mg .ROUTE .STK-MED ONE Ketorolac Tromethamine 60 mg 11/15/23 20:20 11/15/23 21:13 Ketorolac Tromethamine 30 Mg/Ml Inj IM 11/15/23 20:21 60 mg STAT ONE Administration Ketorolac Tromethamine Confirm 11/15/23 20:31 Ketorolac Tromethamine 30 Mg/Ml Inj Administered 11/15/23 20:32 Dose 60 mg .ROUTE .STK-MED ONE - Progress Progress: improved Progress Note: I spoke to Dr. Irwin of orthopedics. He advised that these are stable fractures. Patient may be discharged home with pain control. Patient to follow-up with Dr. Karlos Wilson orthopedic spine doctor in [place]. Plan of care discussed with patient and his . They agree to follow-up as planned. Patient reassessed. Pain significantly improved. Patient states he is well enough to go home. No indication for further workup. They voiced no other complaints or concerns at this time. Portions of this note were created with voice recognition technology. There may be grammatical, spelling, punctuation or sound alike errors Complexity problem addressed is moderate acute complicated. No critical care time. Complex of data reviewed and analyzed is extensive. Test ordered chest reviewed results analyzed and correlated clinically with history and physical examination. Management discussed with orthopedics. Risk of complication and or risk of morbidity/mortality patient management is moderate. Prescription for Johnston forwarded to patient's pharmacy. Vital stable. Time spent to discharge patient approximately 20 minutes. Plan of care established for shared decision making. No social determinants of health present to impede follow-up. Portions of this note were created with voice recognition technology. There may be grammatical, spelling, punctuation or sound alike errors 11/15/23 22:44 - Departure Departure Disposition: Home Clinical Impression: Fall, Fracture of transverse process of spine without spinal cord lesion, Lumbosacral strain, Degenerative disc disease, Dextroscoliosis, Right lower lobe noncalcified lung nodul Condition: Stable Critical Care Time: No Referrals: ASHLEY RANKIN, SERA [Primary Care Provider] - Follow up/PCP as directed CARLOS WILSON [NON-STAFF PHY W/O PRIVILEGES] - Follow up/PCP as directed Additional Instructions: Please follow-up with Dr. Karlos Wilson orthopedic spine surgeon in [place]. Please call tomorrow morning to schedule a follow-up appointment Discharge/Care Plan SUMMER LUONG JR was seen on 11/15/23 in the Emergency Room. The patient was counseled regarding Diagnosis,Lab results, Imaging studies, need for follow up and when to return to the Emergency Room. Prescriptions given: Discharge Note I have spoken with the patient and/or caregivers. I have explained the patient's condition, diagnosis and treatment plan based on the information available to me at this time. I have answered the patient's and/or caregiver's questions and addressed any concerns. The patient and/or caregivers have as good understanding of the patient's diagnosis, condition and treatment plan as can be expected at this point. The vital signs have been stable. The patient's condition is stable and appropriate for discharge from the emergency department. The patient will pursue further outpatient evaluation with the primary care physician or other designated or consulting physician as outlined in the discharge instructions. The patient and/or caregivers are agreeable to this plan of care and follow-up instructions have been explained in detail. The patient and/or caregivers have received these instruction. The patient/and or caregivers are aware that any significant change in condition or worsening of symptoms should prompt an immediate return to this or the closest emergency department or call 911. Prescriptions: Hydrocodone/APAP 5/325 [Johnston 5/325 mg] 1 each PO Q6H PRN PRN #10 tablet MDD 4 PRN Reason: Pain
[2023-11-15] MEDS ORDERED: DECADRON 10MG INJ. ONE (20:31)
[2023-11-15] MEDS ORDERED: TORAdol 30 mg Injection ONE (20:31)
[2023-11-15] MEDS: TORAdol 30 mg Injection IM ONE (21:13)
[2023-11-15] MEDS: DECADRON 10MG INJ. IM ONE (21:14)
[2023-11-15] MEDS ORDERED: NORCO 5/325 MG ONE (22:56)
[2023-11-15] MEDS: NORCO 5/325 MG PO ONE (22:56)
[2023-11-15 23:04] VITALS: BP 140/79; PULSE 75; RESP 19; O2SAT 94
--- NOTE | 2023-11-16 08:45 | XRAY ---
Indication: Pain following fall from ladder. Multiple contiguous axial images obtained through the chest without contrast. Comparison: None Both lower lobes demonstrate scattered subsegmental atelectasis/scarring. There is a 1.3 x 1.2 cm indeterminant noncalcified nodule in the right lower lobe. No infiltrate, consolidation, effusion, or pneumothorax. Heart is not enlarged with scattered coronary calcifications and stent. Aorta is normal in course and caliber. No pathologic mediastinal lymphadenopathy. Small hiatal hernia. Bony thorax intact with incidental mild levoscoliosis centered at T11. CT abdomen/pelvis reported separately. Impression: 1. Right lobe indeterminant noncalcified nodule. Outside comparison studies recommended if available. If not, PET CT may yield further information. 2. Incidental bibasilar atelectasis/scarring, coronary calcifications, hiatal hernia, and levoscoliosis.
--- NOTE | 2023-11-16 08:49 | XRAY ---
Indication: Pain following fall from ladder. Multiple contiguous axial images obtained through the abdomen and pelvis without contrast. Comparison: None CT chest reported separately. Noncontrasted stomach and bowel loops appear nonobstructed with normal appendix and scattered colonic diverticulosis greatest in sigmoid colon. 1 cm right adrenal adenoma. No free fluid/air. Remaining liver, gallbladder, pancreas, spleen, adrenal glands, kidneys, ureters, and bladder are unremarkable for noncontrast exam. Mild scattered aortoiliac calcifications with minimal distal aortic ectasia. Osseous structures demonstrates minimal degenerative changes throughout the spine, mild degenerative changes both hips, and mild dextroscoliosis centered at L1. Also minimally displaced right L1-L3 transverse process acute fractures. Impression: 1. Acute fractures right L1-L3 transverse processes. 2. Chronic findings including colonic diverticulosis, right adrenal adenoma, arteriosclerotic disease, and chronic bony findings. 3. Remaining CT abdomen/pelvis without contrast exam is negative
--- NOTE | 2023-11-16 08:51 | XRAY ---
Indication: Pain following fall from ladder. Sagittal, coronal, and axial reformatted images lumbar spine obtained using raw data from same day abdomen and pelvis exam. Comparison: None Osseous structures demonstrates minimal degenerative changes throughout the spine and mild dextroscoliosis centered at L1. Also minimally displaced right L1-L3 transverse process acute fractures. CT abdomen/pelvis reported separately. Impression: Acute fractures right L1-L3 transverse processes.
== END 2023-11-15 23:29 | disposition home or self-care (01) ==
LOC: ED 17:30
DX: S32.019A Unspecified fracture of first lumbar vertebra, initial encounter for closed fracture (principal); S32.029A Unspecified fracture of second lumbar vertebra, initial encounter for closed fracture; S32.039A Unspecified fracture of third lumbar vertebra, initial encounter for closed fracture; S39.012A Strain of muscle, fascia and tendon of lower back, initial encounter; W11.XXXA Fall on and from ladder, initial encounter; M51.36 Other intervertebral disc degeneration, lumbar region; M41.9 Scoliosis, unspecified; R91.1 Solitary pulmonary nodule; E78.5 Hyperlipidemia, unspecified; I10 Essential (primary) hypertension; Z79.891 Long term (current) use of opiate analgesic; Z79.02 Long term (current) use of antithrombotics/antiplatelets; Z79.899 Other long term (current) drug therapy
CPT/HCPCS: 71250; 74176; 76376; 96372; 99284; J1100; J1885; A9270-GY

== ENCOUNTER 2023-11-20 11:27 | Emergency (ER) | payer MEDICARE, OTHER ==
--- NOTE | 2023-11-20 11:29 | ERPHSYRPT ---
- History of Present Illness Time Seen by Provider: 11/20/23 11:28 Source: patient, family Exam Limitations: no limitations Physician History: This is a 63-year-old white male patient of nurse practitioner Gibran who presents with back pain. He has a known acute fractures of right L1-L3 transverse process fractures that were found on a CT scan performed on 11/15/2023 here in our emergency department after he fell off a ladder. Patient took his last dose of pain medicine at 5 AM. Patient has a neurologist appointment in 2 weeks as well as 4 weeks depending on who he can see the earliest. Patient has not had a new fall or injury. His pain increases with movement. Is described as sharp and shooting pain. Patient has not loss of bowel or bladder control. He has no urinary retention. Timing/Duration: day(s) (Several days after he fell off a ladder.) Method of Injury: fall Quality: sharp, stabbing Back Pain Location: lumbar spine Severity of Pain-Max: moderate Associated Symptoms: lower back pain, No urinary incontinence, No loss of bowel control, No numbness in legs/feet, No tingling in legs/feet Previous symptoms: same symptoms as today, recently seen, recently treated Allergies/Adverse Reactions: No Known Drug Allergies Allergy (Verified 11/20/23 13:43) Home Medications: Carvedilol [Coreg ] 6.25 mg PO BID 08/21/20 [History] Lisinopril 20 mg [Zestril 20 MG] 20 mg PO DAILY 08/21/20 [History] Tamsulosin HCl 0.4 mg PO DAILY 08/21/20 [History] Albuterol Sulfate [Albuterol Sulfate Hfa] 2 puffs IH Q6H PRN PRN 11/15/23 [History] Amlodipine Besylate 5 mg [Norvasc 5 mg] 5 mg PO DAILY 11/15/23 [History] Clopidogrel Bisulfate [Plavix] 75 mg PO DAILY 11/15/23 [History] Ezetimibe [Zetia] 10 mg PO DAILY 11/15/23 [History] Hx Tetanus, Diphtheria Vaccination/Date Given: Yes Hx Influenza Vaccination/Date Given: No Hx Pneumococcal Vaccination/Date Given: No Travel Risk - International Travel Have you traveled outside of the country in past 3 weeks: No - Emerging Infectious Disease Are you exhibiting symptoms associated with any current EIDs: No - Review of Systems Constitutional: No Symptoms Eyes: No Symptoms Ears, Nose, & Throat: No Symptoms Respiratory: No Symptoms Cardiac: No Symptoms Abdominal/Gastrointestinal: No Symptoms Genitourinary Symptoms: No Symptoms Musculoskeletal: Back Pain Skin: No Symptoms Neurological: No Symptoms Psychological: No Symptoms Endocrine: No Symptoms Hematologic/Lymphatic: No Symptoms Immunological/Allergic: No Symptoms All Other Systems: Reviewed and Negative - Past Medical History Pertinent Past Medical History: Yes Neurological History: No Pertinent History ENT History: No Pertinent History Cardiac History: High Cholesterol, Hypertension Respiratory History: COPD Endocrine Medical History: No Pertinent History Musculoskeletal History: Arthritis GI Medical History: No Pertinent History History: No Pertinent History Psycho-Social History: Depression Male Reproductive Disorders: Other Other Medical History: enlarged prostate - Past Surgical History Past Surgical History: Yes Neuro Surgical History: No Pertinent History Cardiac: Cardiac Catheterization, Cardiac Stent Respiratory: No Pertinent History Gastrointestinal: No Pertinent History Genitourinary: No Pertinent History Musculoskeletal: Orthopedic Surgery Male Surgical History: No Pertinent History Other Surgical History: R knee, R foot, L ankle - screws in place - Social History Smoking Status: Former smoker Exposure to second hand smoke: No Drug Use: none Patient Lives Alone: No - Social Determinants of Health Will the patient participate in the screening: Declined to provide - Nursing Vital Signs Nursing Vital Signs: Initial Vital Signs Pulse Rate 68 11/20/23 13:32 Respiratory Rate 18 11/20/23 13:32 Blood Pressure 178/81 11/20/23 13:32 O2 Sat by Pulse Oximetry 95 11/20/23 13:32 Pain Scale Pain Intensity [Right Back] 8 Pain Intensity 8 - Physical Exam General Appearance: mild distress, alert, anxiety Eye Exam: PERRL/EOMI, eyes nml inspection Ears, Nose, Throat Exam: normal ENT inspection, moist mucous membranes Neck Exam: normal inspection, non-tender, supple, full range of motion Respiratory Exam: airway intact, No chest tenderness, No respiratory distress Gastrointestinal Exam: No tenderness Rectal Exam: not done Back Exam: vertebral tenderness (Known L1-L3 transverse process fractures. No central canal compromise), decreased range of motion, muscle spasm Neurologic Exam: alert, oriented x 3, cooperative, intern retail II-XII nml as tested, nml cerebellar function, sensation nml Skin Exam: normal color, warm, dry Lymphatic Exam: No adenopathy SpO2 Interpretation: normal O2 Delivery: Room Air - Course Nursing assessment & vital signs reviewed: Yes Ordered Tests: Medication Summary Discontinued Medications Generic Name Dose Route Start Last Admin Trade Name Alma Rosa PRN Reason Stop Dose Admin Methylprednisolone Sodium 0 mg 11/20/23 14:07 11/20/23 14:20 Succinate 125 mg/ Sterile IM 11/20/23 14:08 125 mg Water 2 ml STAT ONE Administration Hydromorphone HCl 1 mg 11/20/23 14:06 11/20/23 14:21 Hydromorphone 1 Mg/1ml Inj IM 11/20/23 14:07 1 mg STAT ONE Administration Hydromorphone HCl Confirm 11/20/23 14:16 Hydromorphone 1 Mg/1ml Inj Administered 11/20/23 14:17 Dose 1 mg .ROUTE .STK-MED ONE Methylprednisolone Sodium Succinate Confirm 11/20/23 14:16 Methylprednis Sod Succ 125 Mg/2 Ml Vial Administered 11/20/23 14:17 Dose 125 mg .ROUTE .STK-MED ONE Ondansetron HCl 4 mg 11/20/23 14:07 11/20/23 14:21 Zofran 4 Mg/Udtablet Orally Disintegrating PO 11/20/23 14:08 4 mg STAT ONE Administration Ondansetron HCl Confirm 11/20/23 14:16 Zofran 4 Mg/Udtablet Orally Disintegrating Administered 11/20/23 14:17 Dose 4 mg .ROUTE .STK-MED ONE Orphenadrine Citrate 60 mg 11/20/23 14:06 11/20/23 14:21 Orphenadrine Citrate 60 Mg/2 Ml Vial IM 11/20/23 14:07 60 mg STAT ONE Administration Orphenadrine Citrate Confirm 11/20/23 14:16 Orphenadrine Citrate 60 Mg/2 Ml Vial Administered 11/20/23 14:17 Dose 60 mg .ROUTE .STK-MED ONE Sterile Water Confirm 11/20/23 14:16 Water For Injection,Sterile 10 Ml Vial Administered 11/20/23 14:17 Dose 10 ml IJ .STK-MED ONE - Progress Progress: improved, pain not gone completely Progress Note: 11/20/23 15:52 Medical decision making and the assignment of low complexity to this patient's medical issue today is based on review of the patient's past medical history, review of the patient's medication list, review patient drug allergy list, history present illness and physical findings on examination. The workup does not require any laboratory radiographic studies. Counseled pt/family regarding: diagnosis, need for follow-up Medical Desision Making - Independent Historian Additional History obtained from: Spouse - Diagnostic Testing Diagnostic test were ordered, analyzed, and reviewed by me: No - Risk of complications The pt has a mod risk of morbidity or mortality based on: Need for prescription drug management - Departure Departure Disposition: Home Clinical Impression: Fracture of transverse process of lumbar vertebra Condition: Stable Critical Care Time: No Referrals: ASHLEY RANKIN NP [Primary Care Provider] - Follow up/PCP as directed Additional Instructions: My medical decision making of the assignment of low complexity to this patient's medical issue today is based on review of the patient's past medical history, review the patient's medication list, reviewed patient drug allergy list, history present illness and physical findings on examination. The workup in this patient does not require any laboratory radiographic studies. Prescriptions: Oxycodone HCl/Acetaminophen [Percocet 5-325 mg Tablet] 1 each PO Q8H PRN PRN #6 tablet MDD 3 PRN Reason: Moderate To Severe Pain Prednisone 10 mg [Deltasone 10 mg] 10 mg PO TID #12 tablet Orphenadrine Citrate 100 mg [Norflex 100 MG Tablet] 100 mg PO BID #10 tab
[2023-11-20 14:09] VITALS: BP 143/71; PULSE 60; RESP 16; O2SAT 96
[2023-11-20] MEDS ORDERED: solu-MEDROL ONE (14:16)
[2023-11-20] MEDS ORDERED: Norflex 60 MG/2 ML ONE (14:16)
[2023-11-20] MEDS ORDERED: ZOFRAN ODT 4 MG ONE (14:16)
[2023-11-20] MEDS ORDERED: Hydromorphone 1 mg/ml Injection ONE (14:16)
[2023-11-20] MEDS ORDERED: Sterile H2O 10 ml IJ ONE (14:16)
[2023-11-20] MEDS: solu-MEDROL 125 MG, Sterile H2O 10 ml 2 ML IM ONE (14:20)
[2023-11-20] MEDS: ZOFRAN ODT 4 MG PO ONE (14:21)
[2023-11-20] MEDS: Hydromorphone 1 mg/ml Injection IM ONE (14:21)
[2023-11-20] MEDS: Norflex 60 MG/2 ML IM ONE (14:21)
== END 2023-11-20 17:24 | disposition home or self-care (01) ==
LOC: ED 11:27
DX: S32.019A Unspecified fracture of first lumbar vertebra, initial encounter for closed fracture (principal); S32.029A Unspecified fracture of second lumbar vertebra, initial encounter for closed fracture; S32.039A Unspecified fracture of third lumbar vertebra, initial encounter for closed fracture; W11.XXXA Fall on and from ladder, initial encounter; E78.5 Hyperlipidemia, unspecified; I10 Essential (primary) hypertension; Z79.02 Long term (current) use of antithrombotics/antiplatelets; Z79.891 Long term (current) use of opiate analgesic; Z79.52 Long term (current) use of systemic steroids; Z79.899 Other long term (current) drug therapy
CPT/HCPCS: 96372; 99283; J1170; J2360; J2919; Q0162

== ENCOUNTER 2024-01-23 06:06 | Day surgery (SDC) | payer MEDICARE, OTHER ==
[2024-01-23 06:55] LABS: Absolute Neutrophil Ct (ANC) 3.95 x10^3/uL (1.78-5.38); BASOPHIL % 0.9 % (0.2-1.2); Basophil (Absolute #) 0.06 x10^3/uL (0.01-0.08); Eosinophil % 2.6 % (0.8-7.0); Eosinophil (Absolute #) 0.18 x10^3/uL (0.04-0.54); Hematocrit 39.3 % (40.1-51.0); Hemoglobin 12.7 g/dL (13.7-17.5); IMMATURE GRAN # 0.02 x10^3u/L (0.001-0.031); IMMATURE GRAN % 0.3 % (0.001-0.429); Lymphocyte (Absolute #) 2.04 x10^3/uL (1.32-3.57); Lymphocytes % 29.7 % (21.8-53.1); Mean Cell Volume 86.4 fL (79.0-92.2); Mean Corpuscular Hemoglobin 27.9 pg (25.7-32.2); Mean Corpuscular Hgb Concent. 32.3 g/dL (32.3-36.5); Mean Platelet Volume 10.6 fL (9.4-12.4); Monocyte (Absolute #) 0.62 x10^3/uL (0.30-0.82); Neutrophil % 57.5 % (34.0-67.9); Platelet Count 232 x10^3/uL (163-337); Red Blood Count 4.55 x10^6/uL (4.63-6.08); Red Cell Distribution Width 13.1 % (11.6-14.4); White Blood Count 6.9 x10^3/uL (4.23-9.07)
[2024-01-23 07:12] LABS: ANION GAP 12.9 MEQ/L (5-15); Calcium 9.2 mg/dL (8.4-10.2); Creatinine 1 1.28 mg/dL (0.66-1.25); EST GLOMERULAR FILTRATION RATE 62.1 ML/MIN; INR 0.99 (0.8-3.0); PROTIME 10.8 SECONDS (9.4-12.5); Potassium 3.7 mmol/L (3.5-5.1)
[2024-01-23] MEDS ORDERED: DIPRIVAN 200 MG/20 ML IV ONE ×2 (07:32→07:42)
[2024-01-23 08:01] VITALS: RESP 16; TEMP 97.5
[2024-01-23 08:12] VITALS: O2SAT 94
[2024-01-23 08:21] VITALS: BP 121/72; PULSE 66
--- NOTE | 2024-01-25 11:29 | OP ---
SURGERY DATE/TIME: 01/23/2024 [id number] PREOPERATIVE DIAGNOSIS: Screening exam. POSTOPERATIVE DIAGNOSES: Small polyp in the sigmoid colon and sigmoid diverticulosis. PROCEDURE: Colonoscopy with cold forceps biopsy. SURGEON: Dustin Crespo MD. ANESTHESIA: Medications were given by the anesthesia department. INDICATIONS: The patient is a 63-year-old white male patient presenting now for screening colonoscopy. He was apprised of the risks of the procedure including the risk of perforation, phlebitis, untoward reaction to medication, bleeding, and missed lesions. The patient verbalized his understanding and desired to have the procedure performed. DESCRIPTION OF PROCEDURE AND FINDINGS: The patient was given medication by the anesthesia department. He had continuous pulse oximetry, ECG monitoring, and intermittent blood pressure monitoring during the examination. He was placed in the left lateral decubitus position. Digital rectal examination was performed and revealed normal anal sphincter tone, no masses and a normal prostate. The flexible Olympus videocolonoscope was used to intubate the rectum. A view of the colon was developed sequentially to the cecum. Upon insertion and withdrawal, it was noted moderate to severe sigmoid diverticulosis and 1 tiny polyp in the sigmoid colon that appeared to have some possible adenomatous changes. This was biopsied and destroyed with just 1 pass of the cold forceps biopsy instrument. No other mucosal lesions had been encountered. The scope was removed. The patient tolerated the procedure well and was sent back to outpatient recovery in good condition. The prep was noted to be fair.
== END 2024-01-23 08:26 | disposition home or self-care (01) ==
LOC: SDC 06:06
PROVIDERS: ATTEND Family Medicine
DX: Z12.11 Encounter for screening for malignant neoplasm of colon (principal); K57.30 Diverticulosis of large intestine without perforation or abscess without bleeding; D12.5 Benign neoplasm of sigmoid colon; Z79.01 Long term (current) use of anticoagulants
CPT/HCPCS: 36415; 80048; 85025; 85610; 93005; J2704